=== PATIENT | male | born 1990 ===

== ENCOUNTER 2017-05-21 18:59 | Emergency (ER) | payer BC ==
--- NOTE | 2017-05-21 20:09 | C.PDOC ---
History Of Present Illness 26-year-old male, comes in for evaluation of cold symptoms for two days. Patient complains of fatigue, malaise, fever, states +sick contact at home is child. Denies lethargy, severe headache, dizziness, neck pain, drooling, dysphagia, dyspnea, CP, SOB, wheezing, abd. pain, vomiting/diarrhea, rashes. Ambulate to ED for evaluation, not in any apparent distress. HPI: Influenza Time Seen by Provider: 05/21/17 19:20 Chief Complaint: Cough, Cold, Congestion History Per: Patient Exam Limitations: no limitations Past Medical History Reviewed: Historical Data, Nursing Documentation, Vital Signs Vital Signs: Last Vital Signs Temp 101.8 F H 05/21/17 19:09 Pulse 102 H 05/21/17 19:03 Resp 20 05/21/17 19:03 BP 108/71 05/21/17 19:03 Pulse Ox 99 05/21/17 19:03 - Medical History PMH: No Chronic Diseases Family History: States: No Known Family Hx - Social History Hx Alcohol Use: No Hx Substance Use: No - Immunization History Hx Tetanus Toxoid Vaccination: No Hx Influenza Vaccination: No Hx Pneumococcal Vaccination: No Review Of Systems Constitutional: Positive for: Fever, Chills, Malaise ENT: Negative for: Ear Pain, Nose Discharge, Nose Congestion, Throat Pain Cardiovascular: Negative for: Chest Pain Respiratory: Negative for: Cough, Shortness of Breath Gastrointestinal: Negative for: Nausea, Vomiting Musculoskeletal: Negative for: Back Pain Skin: Negative for: Rash Neurological: Negative for: Weakness, Numbness, Headache, Dizziness Physical Exam - Physical Exam Appears: Well, Non-toxic, No Acute Distress Skin: Normal Color, Warm, Dry, No Rash Head: Normacephalic Eye(s): bilateral: PERRL Ear(s): Bilateral: Normal Nose: No Flaring, Discharge (scant clar B/l) Oral Mucosa: Moist, No Drooling Throat: No Erythema, No Drooling Neck: Trachea Midline, Supple, Other ((-) meningeal sign) Cardiovascular: Rhythm Regular Respiratory: No Decreased Breath Sounds, No Accessory Muscle Use, No Stridor, No Wheezing Gastrointestinal/Abdominal: Soft, No Tenderness, No Distention, No Guarding Back: No CVA Tenderness Extremity: Normal ROM, No Deformity, No Swelling Neurological/Psych: Oriented x3, Normal Speech - ECG O2 Sat by Pulse Oximetry: 99 Pulse Ox Interpretation: Normal - Progress ED Course And Treament: On re-evaluation, pt is awake, comfortable, not in nay apparent distress. fever improbved, hemodynamicaly stable. Non-toxic. Tolerate Po well in ED. PulsEOx 100% RA neck: Supple, (-) meningeal sign Lungs: CTA B/L, BS equal B/L CVS: (+)S1S2, reg. Abd: benign, (-) guarding, (-) rebound Neurologicaly intact. Rapid strep (-) Pt has clinical findings c/w Pt advised to F/u with PMD in 2-3 days for re-eavl. return to Ed if any worsening or new changes. Disposition Counseled Patient/Family Regarding: Studies Performed, Diagnosis, Need For Followup, Rx Given - Disposition Referrals: [facility] [Outside] Disposition: HOME/ ROUTINE Disposition Time: 20:07 Condition: STABLE Additional Instructions: Encourage fluids Take medication as prescribed Follow up with PMD in 2-3 days for re-evaluation. return to ED if any worsening or new changes. Prescriptions: Ibuprofen [Motrin Tab] 400 mg PO Q6 #20 tab Oseltamivir Phosphate [Tamiflu] 75 mg PO BID #10 capsule Instructions: Influenza (ED) Forms: [facility] (German) - Clinical Impression Clinical Impression: Influenza-like illness - Scribe Statement The provider has reviewed the documentation as recorded by the Scribe (Lexi Richardson) All medical record entries made by the Scribe were at my direction and personally dictated by me. I have reviewed the chart and agree that the record accurately reflects my personal performance of the history, physical exam, medical decision making, and the department course for this patient. I have also personally directed, reviewed, and agree with the discharge instructions and disposition.
[2017-05-21 20:44] VITALS: BP 110/74; PULSE 74; RESP 18; TEMP 99.2
[2017-05-21 21:49] VITALS: O2SAT 99
== END 2017-05-21 20:43 | disposition home or self-care (01) ==
LOC: C.ER 18:59
DX: J11.1 Influenza due to unidentified influenza virus with other respiratory manifestations (principal)

== ENCOUNTER 2018-08-01 06:59 | Emergency (ER) | payer BC ==
--- NOTE | 2018-08-01 07:46 | C.PDOC ---
History Of Present Illness 27 y.o. male presents for evaluation of fever, cough, sore throat, and mild [place] that started last night. The pt notes his child is sick with similar symptoms. Admits to taking Motrin last night, symptoms persisted which prompted ED visit. Denies nausea, vomiting, abdominal pain, and any other associated symptoms. Time Seen by Provider: 08/01/18 07:14 Chief Complaint (Nursing): Fever History Per: Patient History/Exam Limitations: no limitations Onset/Duration Of Symptoms: Hrs Current Symptoms Are (Timing): Still Present Location Of Pain: Throat Associated Symptoms: Fever, Sore Throat, Cough Ear Symptoms: Bilateral: None Recent travel outside of the [place]: No Past Medical History Reviewed: Historical Data, Nursing Documentation, Vital Signs Vital Signs: Last Vital Signs Temp 101.2 F H 08/01/18 07:06 Pulse 83 08/01/18 07:06 Resp 16 08/01/18 07:06 BP 113/77 08/01/18 07:06 Pulse Ox 99 08/01/18 07:06 Primary Care Provider: FAMILY PROVIDER,NO Family History: States: Unknown Family Hx - Social History Hx Alcohol Use: No Hx Substance Use: No - Immunization History Hx Tetanus Toxoid Vaccination: No Hx Influenza Vaccination: No Hx Pneumococcal Vaccination: No Review Of Systems Except As Marked, All Systems Reviewed And Found Negative. Constitutional: Positive for: Fever ENT: Positive for: Throat Pain (sore. ) Respiratory: Positive for: Cough Gastrointestinal: Negative for: Nausea, Vomiting, Abdominal Pain Neurological: Positive for: Headache (mild. ) Physical Exam - Physical Exam Appears: Non-toxic, No Acute Distress Skin: Warm, Dry Head: Atraumatic, Normacephalic Eye(s): bilateral: Normal Inspection Ear(s): Bilateral: Normal Nose: Normal Oral Mucosa: Moist Throat: Erythema, No Exudate Neck: Normal ROM Chest: Symmetrical, No Deformity Cardiovascular: Rhythm Regular, No Rhythm Irregular Respiratory: Normal Breath Sounds, No Rales, No Rhonchi, No Wheezing Gastrointestinal/Abdominal: Normal Exam, Soft, No Tenderness Extremity: Bilateral: Atraumatic, Normal Color And Temperature, Normal ROM Neurological/Psych: Oriented x3, Normal Speech, Normal Cognition ED Course And Treatment O2 Sat by Pulse Oximetry: 99 (RA) Pulse Ox Interpretation: Normal Medical Decision Making Medical Decision Making: Initial plan: -Motrin -Influenza -Rapid Strep Progress/Update: Pt stable for discharge home. Advised to follow up with PMD within 2-3 days. pt in nad. suspect viral syndrome lungs cta. pt texting on phone in nad. sirs criteria neg. fever resolve.d symptoms x 1 day. lungs cta. stable for dc. return precautions advised. Disposition - Disposition Referrals: [facility] [Outside] [facility] [Outside] Disposition: HOME/ ROUTINE Disposition Time: 09:00 Condition: STABLE Additional Instructions: return to er with worsening symptoms or concerns. Instructions: Viral Syndrome (DC) Forms: [employer] (Sami) - Clinical Impression Clinical Impression: Viral syndrome - Scribe Statement The provider has reviewed the documentation as recorded by the Scribe (Blanca Patterson) Provider Attestation: All medical record entries made by the Scribe were at my direction and personally dictated by me. I have reviewed the chart and agree that the record accurately reflects my personal performance of the history, physical exam, medical decision making, and the department course for this patient. I have also personally directed, reviewed, and agree with the discharge instructions and disposition.
[2018-08-01 07:59] LABS: INFLUENZA A B NEGATIVE FOR FLU A/B (NEGATIVE)
[2018-08-01 08:28] VITALS: BP 116/72; PULSE 81; RESP 18; TEMP 99.1
[2018-08-01 08:59] VITALS: O2SAT 99
== END 2018-08-01 08:34 | disposition home or self-care (01) ==
LOC: C.ER 06:59
DX: B34.9 Viral infection, unspecified (principal)